=== PATIENT | male | born 1935 | race Caucasian/White ===

== ENCOUNTER 2021-11-30 12:21 | Day surgery (SDC) | payer MEDICARE, BC ==
[2021-11-30] MEDS ORDERED: Acetaminophen 500 MG TAB ONE (13:43)
[2021-11-30] MEDS ORDERED: diphenhydrAMINE 25 MG CAP ONE (13:43)
[2021-11-30] MEDS ORDERED: diphenhydrAMINE 25 MG CAP PO SCH (14:30)
[2021-11-30] MEDS ORDERED: Acetaminophen 500 MG TAB PO SCH (14:30)
[2021-11-30 17:54] VITALS: BP 106/54; TEMP 98.3
[2021-11-30 19:06] LABS: Band 8 % (5-11); Hemoglobin 7.5 g/dL (14.0-18.0); Lymphocytes 16 % (21-51); MDiff Complete? YES; Mean Corpuscular Hemoglobin 31.4 pg (27.0-31.0); Mean Corpuscular Volume 97.9 fL (78.0-98.0); Mean Platelet Volume 10.8 fL (7.4-10.4); Monocytes 10 % (0-10); Myelocyte 4 % (0-0); Neutrophil 54 % (42-75); Nucleated RBC 2 % (0); Ovalocytes SLIGHT = 2-5 cells (100X) (0-1/hpf); Platelet Count 174 thou/uL (130-400); Platelet Morphology Comment Appears Adequate; Polychromasia SLIGHT = 2-3 cells (100X) (0-2/hpf); RBC Distribution Width 16.7 % (11.5-14.5); Reactive Lymphocytes 8 % (0-10); White Blood Cell (WBC) Count 1.9 thou/uL (4.8-10.8)
== END 2021-11-30 17:54 | disposition home or self-care (01) ==
LOC: ONC/OP 12:21
PROVIDERS: ATTEND Nurse Practitioner Family
PROC: 30233N1 Transfusion of Nonautologous Red Blood Cells into Peripheral Vein, Percutaneous Approach (ICD-10-PCS; principal; 2021-11-30)
DX: D64.9 Anemia, unspecified (principal); D69.6 Thrombocytopenia, unspecified
CPT/HCPCS: 36430; 80053; 82248; 83615; 84100; 84550; 85025; 86850; 86900; 86901; J1642; P9016

== ENCOUNTER 2021-12-07 12:32 | Day surgery (SDC) | payer MEDICARE, BC ==
[2021-12-07] MEDS ORDERED: Acetaminophen 500 MG TAB PO SCH (13:00)
[2021-12-07] MEDS ORDERED: diphenhydrAMINE 25 MG CAP PO SCH (13:00)
[2021-12-07] MEDS ORDERED: Acetaminophen 500 MG TAB ONE (13:13)
[2021-12-07] MEDS ORDERED: diphenhydrAMINE 25 MG CAP ONE (13:13)
[2021-12-07 16:30] VITALS: BP 82/53
[2021-12-07 18:17] VITALS: TEMP 98.4
[2021-12-07 18:50] LABS: #Lymphocytes 0.6 thou/uL (1.20-3.40); #Monocytes 0.5 thou/uL (0.11-0.59); #Neutrophils 3.8 thou/uL (1.40-6.50); %Basophils 0.4 % (0.0-1.0); %Eosinophils 0.3 % (0.0-10.0); %Lymphocytes 12.5 % (21.0-51.0); %Monocytes 10.1 % (0.0-10.0); %Neutrophils 76.6 % (42.0-75.0); Hemoglobin 9.7 g/dL (14.0-18.0); Mean Corpuscular Hemoglobin 30.2 pg (27.0-31.0); Mean Corpuscular Volume 94.5 fL (78.0-98.0); Mean Platelet Volume 9.8 fL (7.4-10.4); Platelet Count 191 thou/uL (130-400); Red Blood Cell (RBC) Count 3.21 mill/uL (4.70-6.10); White Blood Cell (WBC) Count 4.9 thou/uL (4.8-10.8)
== END 2021-12-07 18:30 | disposition home or self-care (01) ==
LOC: ONC/OP 12:32
PROVIDERS: ATTEND Internal Medicine Hematology & Oncology
PROC: 30233N1 Transfusion of Nonautologous Red Blood Cells into Peripheral Vein, Percutaneous Approach (ICD-10-PCS; principal; 2021-12-07)
DX: D64.9 Anemia, unspecified (principal)
CPT/HCPCS: 36415; 36430; 80053; 82607; 82728; 84153; 85025; 86850; 86900; 86901; J1642; P9016

== ENCOUNTER 2022-03-15 10:36 | Day surgery (SDC) | payer MEDICARE, BC ==
[2022-03-15] MEDS ORDERED: Acetaminophen 500 MG TAB ONE (11:47)
[2022-03-15 19:00] VITALS: BP 133/70; TEMP 98.7
== END 2022-03-15 18:20 | disposition home or self-care (01) ==
LOC: ONC/OP 10:36
PROVIDERS: ATTEND Internal Medicine Hematology & Oncology
PROC: 30233N1 Transfusion of Nonautologous Red Blood Cells into Peripheral Vein, Percutaneous Approach (ICD-10-PCS; principal; 2022-03-15)
DX: D64.9 Anemia, unspecified (principal); D69.6 Thrombocytopenia, unspecified
CPT/HCPCS: 36430; 86850; 86900; 86901; J1642; P9016